=== PATIENT | male | born 1960 ===

== ENCOUNTER 2018-04-06 11:40 | Emergency (ER) | payer BC ==
[2018-04-06 12:01] VITALS: BP 145/94
--- NOTE | 2018-04-06 12:16 | UC ---
Bite Injury/Animal HPI - HPI Summary HPI Summary: 58 yo male presents with dog bite to left lower leg sustained about 1 hour [employer]. He tells me that he was out running and was going past a cabin. The people inside the cabin opened the door to let the dogs out and one of the dogs ran towards the pt and bit his left leg. He was able to get the contact info of the owners and was assured that the dog was up to date on all vaccinations. He bandaged the wound and came to . - History of Current Complaint Chief Complaint: UCBiteInjury Stated Complaint: DOG BITE Time Seen by Provider: 04/06/18 12:16 Hx Obtained From: Patient Severity Currently: Mild Severity Initially: Mild Pain Intensity: 4 Pain Scale Used: 0-10 Numeric Type of Bite: Animal Has Animal Been Immunized?: Yes Hx of Bite: Unprovoked - Allergies/Home Medications Allergies/Adverse Reactions: Allergies Allergy/AdvReac Type Severity Reaction Status Date / Time No Known Allergies Allergy Verified 04/06/18 12:01 Home Medications: Home Medications Atenolol TAB* [Tenormin TAB* 25 MG] 25 mg PO DAILY 04/06/18 [History Confirmed 04/06/18] PMH/Surg Hx/FS Hx/Imm Hx Previously Healthy: Yes Cardiovascular History: Hypertension - Surgical History Surgical History: None - Family History Known Family History: Positive: Hypertension - Social History Occupation: Employed Full-time Lives: With Family Alcohol Use: Daily Substance Use Type: None Smoking Status (MU): Never Smoked Tobacco Review of Systems Constitutional: Negative Skin: Other - Dog bite left lower leg Respiratory: Negative Cardiovascular: Negative Neurovascular: Negative Musculoskeletal: Negative Neurological: Negative Psychological: Negative All Other Systems Reviewed And Are Negative: Yes Physical Exam - Summary Physical Exam Summary: GENERAL: NAD. WDWN. No pain distress. SKIN: Left lower leg: dog bite on lateral aspect 3.0cm in length with mild subcutaneous fat exposed. No streaking, bleeding, or drainage. NECK: Supple. Nontender. No lymphadenopathy. CHEST: No accessory muscle use. Breathing comfortably and in no distress. CV: RRR. Without m/r/g. MSK: Left LE: FROM. NEURO: Alert. CN II-XII grossly intact. PSYCH: Age appropriate behavior. Triage Information Reviewed: Yes Vital Signs: Initial Vital Signs Temp 98.3 F 04/06/18 11:56 Pulse 87 04/06/18 11:56 Resp 18 04/06/18 11:56 BP 145/94 04/06/18 11:56 Pulse Ox 100 04/06/18 11:56 Vital Signs Reviewed: Yes Bite Injury Course/Dx - Course Course Of Treatment: The wound was copiously irrigated with 1L of NS. Bandaged with telfa. His tetanus is up to date. Health department was contacted and they advised to monitor the dog - no rabies shots at this time. - Differential Dx/Diagnosis Provider Diagnoses: Dog bite left lower leg Discharge - Sign-Out/Discharge Documenting (check all that apply): Discharge/Admit/Transfer - Discharge Plan Condition: Stable Disposition: HOME Prescriptions: Amoxicillin/Clavulanate TAB* [Augmentin TAB 875*] 875 mg PO BID #20 tab Patient Education Materials: Animal Bite (ED) Referrals: No Primary Care Phys,NOPCP [Primary Care Provider] - Additional Instructions: If you develop a fever, shortness of breath, chest pain, new or worsening symptoms - please call your PCP or go to the ED. Your blood pressure was high at todays visit. Please see your primary provider within 4 weeks for recheck and re-evaluation. 1) Keep the wound clean, dry, and bandaged until well healed - Billing Disposition and Condition Condition: STABLE Disposition: Home
== END 2018-04-06 13:08 | disposition home or self-care (01) ==
LOC: UCEAST 11:40
DX: S81.852A Open bite, left lower leg, initial encounter (principal); I10 Essential (primary) hypertension; W54.0XXA Bitten by dog, initial encounter; Y93.02 Activity, running; Y92.9 Unspecified place or not applicable
CPT/HCPCS: 99202; G0463